=== PATIENT | female | born 1965 | race Caucasian/White ===

== ENCOUNTER → 2019-12-06 | Outpatient (CLI) | payer OTHER | END | disposition home or self-care (01) | LOC: EDSTATUS 16:00 → RAD 16:08 | PROVIDERS: ATTEND Physician Assistant Surgical | DX: S22.069A Unspecified fracture of T7-T8 vertebra, initial encounter for closed fracture (principal); X58.XXXA Exposure to other specified factors, initial encounter; Y93.89 Activity, other specified; Y92.89 Other specified places as the place of occurrence of the external cause; Y99.8 Other external cause status | CPT/HCPCS: 72146 ==

== ENCOUNTER 2020-02-14 14:26 | Outpatient (CLI) | payer OTHER | END 2020-02-14 23:59 | disposition home or self-care (01) | LOC: RAD 14:26 | PROVIDERS: ATTEND Physician Assistant Surgical | DX: M48.54XA Collapsed vertebra, not elsewhere classified, thoracic region, initial encounter for fracture (principal); M41.84 Other forms of scoliosis, thoracic region | CPT/HCPCS: 72072 ==